=== PATIENT | male | born 1975 | race Caucasian/White ===

== ENCOUNTER 2017-06-18 22:53 | Inpatient (IN) | payer OTHER ==
[~2017-06-18] VITALS: Ht 177.8 cm; Wt 82.6 kg
--- NOTE | 2017-06-18 23:00 | NUR ---
BB RA97 FROM HOME. PER EMS, PT'S FAMILY STATED PT HAD SZ ACTIVITY X10 SECS. PT ADMITS ETOH AND MARIJUANA USE TODAY. PT AOX3 RR EVEN AND UNLABORED. NO SOB NOTED. NAD NOTED. NO NVD AT THIS TIME. PT GOWNED AND PLACED ON MONITOR WAITING FOR MD ELLER.
--- NOTE | 2017-06-18 23:31 | NUR ---
[facility] AT BEDSIDE
--- NOTE | 2017-06-18 23:35 | NUR ---
LAB AT BEDSIDE FOR BLOOD DRAW.
--- NOTE | 2017-06-18 23:45 | NUR ---
PT TO CT.
[2017-06-18 23:50] LABS: BASOPHILS # (AUTO) 0.1 /CMM (0.0-0.2); BASOPHILS % (AUTO) 0.7 % (0.0-2.0); EOSINOPHILS # (AUTO) 0.2 /CMM (0.0-0.7); EOSINOPHILS % (AUTO) 1.9 % (0.0-6.0); HEMATOCRIT 45 % (39-51); HEMOGLOBIN 15.1 g/dL (13.5-17.5); LYMPHOCYTES # (AUTO) 2.2 /CMM (0.8-4.8); LYMPHOCYTES % (AUTO) 27.6 % (20.0-44.0); MEAN CORPUSCULAR HEMOGLOBIN 29 PG (26.0-33.0); MEAN CORPUSCULAR HGB CONC 34 g/dl (31.0-36.0); MEAN CORPUSCULAR VOLUME 86 fL (80-96); MONOCYTES # (AUTO) 0.4 /CMM (0.1-1.30); MONOCYTES % (AUTO) 5.4 % (2.0-12.0); NEUTROPHILS # (AUTO) 5.2 /CMM (1.8-8.9); NEUTROPHILS % (AUTO) 64.4 % (43.0-81.0); PLATELET COUNT (AUTO) 226 /CMM (150-450); RDW COEFFICIENT OF VARIATION 13.2 (11.5-15.0); RED BLOOD CELL COUNT(AUTO) 5.23 MIL/uL (4.5-6.0); WHITE BLOOD COUNT (AUTO) 8.1 K/uL (4.3-11.0)
--- NOTE | 2017-06-18 23:55 | NUR ---
PT RETURNED FROM CT.
[2017-06-19] VITALS (9 sets, daily range): BP systolic 117–131; BP diastolic 68–89
[2017-06-19 00:01] LABS: CREATININE 0.8 mg/dL (0.6-1.3); POTASSIUM 3.8 mmol/L (3.5-5.1)
--- NOTE | 2017-06-19 00:01 | NUR ---
URINE COLLECTED. CALLED LAB FOR PHYS ASSISTANT.
[2017-06-19 00:07] LABS: ALBUMIN 3.8 g/dL (3.4-5.0); BILIRUBIN,DIRECT 0.1 mg/dL (0.0-0.2); BILIRUBIN,TOTAL 0.4 mg/dL (0.2-1.0); TOTAL PROTEIN, SERUM 7.9 g/dL (6.4-8.2)
[2017-06-19 00:22] LABS: APPEARANCE,URINE CLEAR (CLEAR); BILIRUBIN,URINE NEGATIVE (NEGATIVE); BLOOD, URINE NEGATIVE Ery/uL (NEGATIVE); COLOR,URINE YELLOW (YELLOW); KETONES,URINE NEGATIVE (NEGATIVE); LEUKOCYTE ESTERASE ,URINE NEGATIVE (NEGATIVE); NITRITE, URINE NEGATIVE (NEGATIVE); PROTEIN,URINE NEGATIVE (NEGATIVE); UGLUCOSE NEGATIVE (NEGATIVE); UROBILINOGEN,URINE 0.2 EU/dL (0.2)
--- NOTE | 2017-06-19 00:32 | NUR ---
[facility] ([facility]) [phone]
[2017-06-19] MEDS ORDERED: ZOLPIDEM TARTRATE 5 MG TABLET PO PRN (01:30)
[2017-06-19] MEDS ORDERED: ACETAMINOPHEN 325 MG TABLET PO PRN (01:30)
[2017-06-19] MEDS ORDERED: ONDANSETRON HCL/PF 4 MG/2 ML VIAL IVP PRN (01:30)
[2017-06-19] MEDS ORDERED: MAGNESIUM HYDROXIDE 30 ML UDC PO PRN (01:30)
[2017-06-19] MEDS ORDERED: Z GUARD REMEDY 2 OZ OINT TP PRN (01:30)
[2017-06-19] MEDS ORDERED: HYDROCODONE/APAP 5/325MG 1 EACH TABLET PO PRN (01:30)
[2017-06-19] MEDS ORDERED: MAG HYDROX/AL HYDROX/SIMETH 30 ML UDC PO PRN (01:30)
--- NOTE | 2017-06-19 01:30 | NUR ---
RN NOTES PATIENT ARRIVED FROM ER VIA GURNEY, ALERT AND ORIENTED X4, NO SOB, NO RESPIRATORY DISTRESS, CALM, DENIES ANY PAIN AT THIS TIME, DENIES DIZZINESS.LUNG SOUNDS ARE CLEAR IN ALL [place], ABDOMEN SOFT AND NON-TENDER, ACTIVE BOWEL SOUNDS, NO IV LINE, MD AWARE, NO IV FLUIDS. ABLE TO WALK FROM BED TO TOILET. PATIENT ADMITTED TO SMOKING MARIJUANA AND ALCOHOL CONSUMPTION LEADING TO SYNCOPE. EDUCATED ON PLAN OF CARE, ORIENTED TO ROOM AND USE OF CALL LIGHT. NEEDS ATTENDED, CALL LIGHT WITHIN REACH
--- NOTE | 2017-06-19 01:50 | NUR ---
PT TRANSFERRED TO [facility] BED 312-1 PER ACLS PROTOCOL.
--- NOTE | 2017-06-19 06:39 | NUR ---
RN NOTES PATIENT RESTING COMFORTABLY, EASILY AROUSEABLE BY VOICE, NO SOB, NO DISTRESS, NO COMPLAIN OF PAIN, NO DIZZINESS, NO ADVERSE CHANGE OF CONDITION DURING SHIFT, UNDERSTANDS NPO STATUS. KEPT SAFE AND COMFORTABLE, CALL LIGHT WITHIN REACH.
--- NOTE | 2017-06-19 07:20 | NUR ---
DISPLAY SPECIALIST NOTES PATIENT ALERT AND ORIENTED X4, BREATHING EVEN AND UNLABORED, NO DISTRESS NOTED, DENIES PAIN AT THIS TIME, NO PIV NOTED, MD AWARE, PATIENT CONTINUES TO BE NPO EXCEPT MEDS, NEEDS ATTENDED AND MET, CALL LIGHT WITHIN REACH, WILL CONTINUE TO MONITOR.
[2017-06-19] MEDS ORDERED: LOSA1TAB36 PO (12:39)
[2017-06-19] MEDS ORDERED: LORAZEPAM 1 MG TABLET PO PRN (15:15)
--- NOTE | 2017-06-19 16:17 | NUR ---
WALL WORKER NOTES PATIENT STILL AWAITING FOR CARDIO CONSULT AND EEG. SEEN BY DR. PRINCE AND RECEIVED NEW ORDER OF MRI WITH CONTRAST, ORDER NOTED AND CARRIED OUT. PIV INSERTED ON LEFT AC #20. PATIENT SIGNED CONSENT FOR MRI WITH CONTRAST.
--- NOTE | 2017-06-19 19:00 | NUR ---
PROJECTOR OPERATOR NOTES PATIENT CONTINUES ON TELE MONITOR WHICH SHOWS SINUS RACHEL, PATIENT CAME BACK FROM MRI AND UNSUCCESSFUL, EVEN THOUGH PATIENT RECEIVED ATIVAN 1MG PRIOR TO THE PROCEDURE, PATIENT STILL FELT CLAUSTROPHOBIC. PER DR. GODFREY OFFER ANOTHER ATIVAN 1MG, DISCUSSED WITH PATIENT BUT HE INSISTED HE COULDN'T DO IT.
--- NOTE | 2017-06-19 19:30 | NUR ---
ADHESIVE BONDING MACHINE OPERATOR NOTES PATIENT'S CAME AND ASKED TO SPEAK WITH DR. SANTOS, DR. SANTOS WAS PAGED AND DISCUSSED PATIENT'S CONDITION AND PLAN OF CARE TO THE OVER THE PHONE. VERBALIZED UNDERSTANDING. RECEIVED ORDER FROM DR. SANTOS FOR ECHOCARDIOGRAM. ORDER NOTED AND CARRIED OUT. NEEDS ATTENDED AND MET, ENDORSED TO GROUP TEACHER FOR CHILANGO.
[2017-06-20] VITALS: BP 115/75
[2017-06-20 00:54] VITALS: BP 115/66
[2017-06-20 04:00] VITALS: BP 113/69
--- NOTE | 2017-06-20 06:39 | NUR ---
END OF SHIFT SUMMERY: pt is A&O X 4. on room air,saturating well.Connected to the cardiac cath lab radiology technologist,NSR-SB. VSS. denies pain. no episodes of N/V noticed throughout shift. POC: echo,lab studies and EEG. no distress noted,no questions or concerns at this time. will endorse patient and POC to the next RN to continue the care.
[2017-06-20 07:17] LABS: BASOPHILS % (AUTO) 0.7 % (0.0-2.0); EOSINOPHILS # (AUTO) 0.2 /CMM (0.0-0.7); EOSINOPHILS % (AUTO) 3.3 % (0.0-6.0); HEMATOCRIT 46 % (39-51); HEMOGLOBIN 15.6 g/dL (13.5-17.5); LYMPHOCYTES # (AUTO) 2.9 /CMM (0.8-4.8); LYMPHOCYTES % (AUTO) 49.7 % (20.0-44.0); MEAN CORPUSCULAR HEMOGLOBIN 29 PG (26.0-33.0); MEAN CORPUSCULAR HGB CONC 34 g/dl (31.0-36.0); MEAN CORPUSCULAR VOLUME 85 fL (80-96); MONOCYTES # (AUTO) 0.4 /CMM (0.1-1.30); MONOCYTES % (AUTO) 7.1 % (2.0-12.0); NEUTROPHILS # (AUTO) 2.3 /CMM (1.8-8.9); NEUTROPHILS % (AUTO) 39.2 % (43.0-81.0); PLATELET COUNT (AUTO) 209 /CMM (150-450); RDW COEFFICIENT OF VARIATION 13.1 (11.5-15.0); RED BLOOD CELL COUNT(AUTO) 5.37 MIL/uL (4.5-6.0); WHITE BLOOD COUNT (AUTO) 5.8 K/uL (4.3-11.0)
[2017-06-20 07:46] LABS: CREATININE 1.1 mg/dL (0.6-1.3); PHOSPHORUS 3.8 mg/dL (2.5-4.9); POTASSIUM 4.2 mmol/L (3.5-5.1)
[2017-06-20 08:00] VITALS: BP 131/74
[2017-06-20 16:00] VITALS: BP 144/89
--- NOTE | 2017-06-20 17:00 | NUR ---
END OF SHIFT SUMMARY-PT. ALERT AND ORIENTED,HAD ECHO,CAROTID STUDY-SPOKE WITH DR. SANTOS.TO FOLLOW UP WITH APPLIANCE PAINTER AND REFINISHER AFTER DC., EPIFANIO IN AND DC ORDER WRITTEN-PENDING NEURO OK.GEOTHERMAL POWERPLANT MECHANIC HELPER SPOKE WITH DR. PRINCE.OK TO DC. TELE OFF,HEP LOCK OUT.DC INSTRUCTIONS GIVEN,SIGNIFICANT OTHER HERE AND PT. TAKEN TO LOBBY ACC. BY INSTRUCTOR BUS TROLLEY AND TAXI.
== END 2017-06-20 17:00 | disposition home or self-care (01) | DRG 74 ==
LOC: ER 22:57 → TELE 06-19 01:45
PROVIDERS: ADMIT Family Medicine; ATTEND Family Medicine
DX: G90.8 Other disorders of autonomic nervous system (principal); F17.210 Nicotine dependence, cigarettes, uncomplicated; I10 Essential (primary) hypertension; I44.7 Left bundle-branch block, unspecified; F40.240 Claustrophobia
CPT/HCPCS: 36415; 70450-TC; 80048-TC; 80061-TC; 80076-TC; 80305; 81000-TC; 83735-TC; 84100-TC; 84484-TC; 85025-TC; 87081-TC; 93307-TC; 93880-TC; 95819-TC; G0480